=== PATIENT | female | born 1950 | race Caucasian/White ===

== ENCOUNTER 2022-09-13 05:18 | Emergency (ER) | payer OTHER, MEDICAID ==
[~2022-09-13] VITALS: Ht 160 cm; Wt 102.5 kg
[~2022-09-13 05:18] MED LIST: CIPR-260 PO; FAMO-132 PO
[2022-09-13 05:23] VITALS: BP_SYST 162
--- NOTE | 2022-09-13 05:50 | NUR ---
PT FROM HOME WITH C/O OF MEDIAL, NON-RADAITING CP THAT STARTED AT 0230. PT REPORTING MID TO UPPER BACK PAIN 5/10. PT DENIES N/V AND DIARRHEA. PT WITH EVEN AND UNLABORED RESP, NAD. REQUESTED FOR MSE.
--- NOTE | 2022-09-13 06:00 | NUR ---
Patient to ER bed 04 to gown for evaluation. Side rails up.
[2022-09-13 06:01] LABS: BASOPHILS % (AUTO) 0.2 % (0.0-2.0); EOSINOPHILS # (AUTO) 0.1 K/uL (0.0-0.4); EOSINOPHILS % (AUTO) 0.9 % (0.0-4.0); HEMOGLOBIN 14.4 g/dL (12.0-16.0); LYMPHOCYTES # (AUTO) 0.7 K/uL (1.0-5.5); LYMPHOCYTES % (AUTO) 6.3 % (20.5-51.5); MEAN CORPUSCULAR HEMOGLOBIN 28 pg (27-31); MEAN CORPUSCULAR HGB CONC 33 % (32-36); MEAN CORPUSCULAR VOLUME 86 fL (79.0-98.0); MONOCYTES # (AUTO) 0.6 K/uL (0.0-1.0); MONOCYTES % (AUTO) 5.7 % (1.7-9.3); NEUTROPHILS # (AUTO) 9.8 K/uL (1.8-7.7); NEUTROPHILS % (AUTO) 86.9 % (40.0-70.0); PLATELET COUNT (AUTO) 165 K/uL (130-430); RED CELL DISTRIBUTION WIDTH 14.7 % (9.0-15.0); WHITE BLOOD COUNT (AUTO) 11.3 K/uL (4.8-10.8)
--- NOTE | 2022-09-13 06:05 | NUR ---
DR. BAXTER AT BEDSIDE WITH PATIENT FOR MSE.
[2022-09-13 06:10] LABS: ANION GAP 10 (5-15); CHLORIDE 101 mmol/L (98-107); CREATININE 1.07 mg/dL (0.55-1.30); GLUCOSE 142 mg/dL (70-99); UREA NITROGEN, BLOOD 21 mg/dL (8-21)
[2022-09-13 06:17] LABS: ALANINE AMINOTRANSFERASE 26 U/L (12-78); ALBUMIN 3.9 g/dL (3.4-4.8); ASPARTATE AMINOTRANSFERASE 15 U/L (10-37); TOTAL BILIRUBIN 0.3 mg/dL (0.0-1.0)
[2022-09-13 06:18] LABS: GFR AFRICAN AMERICAN 65 mL/min (>90)
--- NOTE | 2022-09-13 06:51 | NUR ---
BP OF 152/101. MADE AWARE. NO NEW ORDERS AT THIS TIME.
--- NOTE | 2022-09-13 07:08 | NUR ---
PT WANTS ELEMENTARY ASSISTANT TEACHER TO BE CALLED AT 0830 FOR UPDATE.
[2022-09-13 07:12] LABS: PROTHROMBIN TIME 9.9 SECS (9.5-12.5)
--- NOTE | 2022-09-13 07:13 | NUR ---
REPORT GIVEN TO JACK FERNANDEZ TO ASSUME ALL CARE.
--- NOTE | 2022-09-13 08:09 | NUR ---
Per patient's request, phoned Caregiver Audrey to have her come pick her up. Voicemail left.
--- NOTE | 2022-09-13 08:09 | NUR ---
Dr. Irby made aware of VS. No new orders.
[2022-09-13 08:15] VITALS: BP_SYST 148
--- NOTE | 2022-09-13 08:15 | NUR ---
Patient given written and verbal discharge instructions and verbalizes understanding. ER MD Irby discussed with patient the results and treatment provided. Patient in stable condition. Patient educated on pain management and to follow up with PMD. Opportunity for questions provided and answered. Awaiting return call from Caregiver Audrey.
--- NOTE | 2022-09-13 09:13 | NUR ---
Caregiver francy, [id number]
--- NOTE | 2022-09-13 09:15 | NUR ---
Patient wheeled out A&ox4 accompanied by Caregiver Audrey. Patient stable. Able to ambulate to vehcile with assistance of cane. Patient in vehicle with caregiver at door side upon leaving patient in caregiver's care.
== END 2022-09-13 08:15 | disposition home or self-care (01) ==
LOC: SED 05:18
DX: R07.89 Other chest pain (principal); K21.9 Gastro-esophageal reflux disease without esophagitis; Z88.0 Allergy status to penicillin; Z88.2 Allergy status to sulfonamides; Z79.899 Other long term (current) drug therapy
CPT/HCPCS: 36415; 71045; 80053; 84484; 85025; 85610-TC; 85730-TC; 93005; 99285

== ENCOUNTER 2022-12-04 13:13 | Outpatient (CLI) | payer OTHER, MEDICAID | END 2022-12-04 18:50 | disposition home or self-care (01) | LOC: SLB 13:13 | PROVIDERS: ATTEND Internal Medicine Cardiovascular Disease | DX: I34.0 Nonrheumatic mitral (valve) insufficiency (principal); I51.7 Cardiomegaly; I51.9 Heart disease, unspecified; R94.31 Abnormal electrocardiogram [ECG] [EKG]; R00.2 Palpitations | CPT/HCPCS: 93306 ==